=== PATIENT | female | born 1995 | race African-American/Black ===

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

== ENCOUNTER 2017-01-07 20:33 | Emergency (ER) | payer OTHER ==
[2017-01-07 21:16] LABS: Bilirubin Negative (Negative); Blood, Urine Negative (Negative); Glucose, Urine (Dipstick) Negative (Negative); Nitrite Negative (Negative); Protein, Urine (Dipstick) Negative (Neg-Trace); Urobilinogen 0.2 mg/dL (0.2-1.0); pH, Urine 8.5 (5.0-9.0)
[2017-01-07 21:22] LABS: Bacteria/HPF 3+ HPF (None Seen); Clarity Hazy (Clear); Leukocyte Trace (Negative); RBC/HPF 0-3 HPF (0-3); Renal Epithelial 0-3 HPF (0-3); Transitional Epithelial 0-3 HPF (0-3); WBC/HPF 21-50 HPF (0-3); Yeast-All Forms Rare HPF (None Seen)
[2017-01-07 21:23] LABS: Crystals/HPF RARE AMORPH PHOS HPF (Negative); Pregu Control Bar Appear? YES (CONTROL BAR)
[2017-01-07] MEDS ORDERED: Sulfameth/Trimethoprim DS 800-160mg TAB ONE ×2 (21:49→21:50)
== END 2017-01-07 21:45 | disposition home or self-care (01) ==
LOC: MADERS 20:33
DX: N39.0 Urinary tract infection, site not specified (principal); I10 Essential (primary) hypertension
CPT/HCPCS: 81003; 81015; 81025; 87077; 87086; 99283

== ENCOUNTER 2017-02-02 22:29 | Emergency (ER) | payer OTHER ==
[2017-02-02] MEDS ORDERED: Acetaminophen/Codeine 30-300mg Tablet ONE (23:24)
--- NOTE | 2017-02-03 06:51 | RAD ---
RADIOGRAPH LEFT KNEE 4 VIEWS: Date: 02/02/17 HISTORY: 21-year-old female with acute traumatic left knee pain. FINDINGS: There is a suprapatellar joint effusion. No fracture, dislocation, or any other osseous abnormality. IMPRESSION: 1. No fracture. 2. Joint effusion. POS: ANGÉLICA
== END 2017-02-02 23:41 | disposition home or self-care (01) ==
LOC: MADERS 22:29
DX: S83.92XA Sprain of unspecified site of left knee, initial encounter (principal); I10 Essential (primary) hypertension; Z79.899 Other long term (current) drug therapy; X50.1XXA Overexertion from prolonged static or awkward postures, initial encounter

== ENCOUNTER 2017-05-10 20:20 | Emergency (ER) | payer OTHER, SELFPAY | END 2017-05-10 21:33 | disposition left against medical advice (07) | LOC: MADERS 20:20 | DX: Z53.21 Procedure and treatment not carried out due to patient leaving prior to being seen by health care provider (principal) ==

== ENCOUNTER 2017-05-17 16:28 | Emergency (ER) | payer OTHER, SELFPAY ==
[2017-05-17] MEDS ORDERED: Ibuprofen 600 MG TAB ONE (17:21)
== END 2017-05-17 16:45 | disposition home or self-care (01) ==
LOC: MADERS 16:28
DX: L02.412 Cutaneous abscess of left axilla (principal); I10 Essential (primary) hypertension; Z79.2 Long term (current) use of antibiotics; Z79.899 Other long term (current) drug therapy; Z79.891 Long term (current) use of opiate analgesic
CPT/HCPCS: 99283

== ENCOUNTER 2017-05-19 21:29 | Emergency (ER) | payer SELFPAY | END 2017-05-19 22:08 | disposition home or self-care (01) | LOC: MADERS 21:29 | DX: Z48.817 Encounter for surgical aftercare following surgery on the skin and subcutaneous tissue (principal); I10 Essential (primary) hypertension; Z79.899 Other long term (current) drug therapy | CPT/HCPCS: 99282 ==

== ENCOUNTER 2018-01-04 20:55 | Emergency (ER) | payer BC | END 2018-01-04 21:41 | disposition home or self-care (01) | LOC: MADERS 20:55 | DX: H66.92 Otitis media, unspecified, left ear (principal); H10.31 Unspecified acute conjunctivitis, right eye; J06.9 Acute upper respiratory infection, unspecified; I10 Essential (primary) hypertension; Z79.899 Other long term (current) drug therapy | CPT/HCPCS: 99283 ==

== ENCOUNTER 2018-03-27 19:22 | Emergency (ER) | payer BC ==
[~2018-03-27 19:22] MED LIST: Sodium Chloride 0.9% 500 ML BAG ONE
[2018-03-27] MEDS ORDERED: Ondansetron HCl/PF 4 MG/2 ML Vial ONE (20:05)
[2018-03-27 20:14] LABS: BHCG - Serum Negative (NEGATIVE); Pregs Control Background? CLEAR/WHITE (CLR/WHITE); Pregs Control Bar Appear? YES (CONTROL BAR)
[2018-03-27 20:15] LABS: ALT (SGPT) 20 U/L (8-55); AST (SGOT) 15 U/L (5-34); Alkaline Phosphatase 83 U/L (40-150); Anion Gap 15 mmol/L (10-20); BUN (Urea Nitrogen) 7 mg/dL (7.0-18.7); Bilirubin, Total 0.4 mg/dL (0.2-1.2); Calc. Creatinine Clearance 0 mL/min (70-130); Calcium 9.4 mg/dL (7.8-10.44); Carbon Dioxide 26 mmol/L (22-29); Chloride 105 mmol/L (98-107); Estimated GFR-MDRD Greater than 90; Globulin 3.3 g/dL (2.4-3.5); Glucose 82 mg/dL (70-105); Potassium 4.3 mmol/L (3.5-5.1); Protein, Total 7.3 g/dL (6.0-8.3); Sodium 142 mmol/L (136-145)
[2018-03-27 20:17] LABS: #Basophils 0.1 thou/uL (0.0-0.2); #Eosinphils 0.3 thou/uL (0.0-0.7); #Lymphocytes 3.3 thou/uL (1.20-3.40); #Neutrophils 6.1 thou/uL (1.40-6.50); %Basophils 0.7 % (0.0-1.0); %Eosinophils 2.7 % (0.0-10.0); %Lymphocytes 30.7 % (21.0-51.0); %Monocytes 9.2 % (0.0-10.0); %Neutrophils 56.6 % (42.0-75.0); Hemoglobin 11.1 g/dL (12.0-16.0); Hypochromia SLIGHT = 6-15 cells (100X) (0-5/hpf); MDiff Complete? YES; Mean Corpuscular Volume 76.8 fl (81.0-99.0); Mean Platelet Volume 7.7 fL (7.4-10.4); Microcytosis SLIGHT = 6-15 cells (100X) (0-5/hpf); PLT Morphology Comment Appears Adequate; Platelet Count 350 thou/uL (130-400); RBC Distribution Width 15.1 % (11.5-14.5); RBC Morphology Abnormal; Red Blood Cell (RBC) Count 4.84 mill/uL (4.20-5.40); White Blood Cell (WBC) Count 10.7 thou/uL (4.8-10.8)
== END 2018-03-27 21:00 | disposition home or self-care (01) ==
LOC: MADERS 19:22
DX: E86.0 Dehydration (principal); I10 Essential (primary) hypertension
CPT/HCPCS: 36415; 80053; 84703; 85025; 96361; 96374; J2405; J7050